=== PATIENT | female | born 1970 | race Hispanic/Latino ===

== ENCOUNTER → 2018-06-25 | Outpatient (CLI) | payer OTHER | END | disposition home or self-care (01) | LOC: RAH 08:52 | PROVIDERS: ATTEND Family Medicine | DX: Z12.31 Encounter for screening mammogram for malignant neoplasm of breast (principal) | CPT/HCPCS: 77067 ==

== ENCOUNTER → 2020-11-28 | Outpatient (CLI) | payer OTHER | END | disposition home or self-care (01) | LOC: RAH 14:33 | PROVIDERS: ATTEND Obstetrics & Gynecology | DX: Z12.31 Encounter for screening mammogram for malignant neoplasm of breast (principal); N64.89 Other specified disorders of breast | CPT/HCPCS: 77067 ==

== ENCOUNTER → 2025-01-19 | Outpatient (CLI) | payer OTHER | END | disposition home or self-care (01) | LOC: RAH 11:19 | PROVIDERS: ATTEND Family Medicine | DX: Z12.31 Encounter for screening mammogram for malignant neoplasm of breast (principal) | CPT/HCPCS: 77067 ==

== ENCOUNTER → 2025-03-02 | Outpatient (CLI) | payer OTHER ==
--- NOTE | 2025-03-03 10:49 | HMCIMG ---
EXAMINATION: ULTRASOUND OF THE ABDOMEN WITH COLOR DOPPLER. CLINICAL HISTORY: Unspecified abdominal pain. COMPARISON: None provided. TECHNIQUE: Real-time grayscale ultrasound images of the abdomen. In addition, color Doppler is medically necessary to perform in order to evaluate vascularity and blood flow. FINDINGS: Liver: Normal in caliber; the right hepatic lobe measures 16.1 cm in the craniocaudal dimension. There is increased echogenicity of the hepatic parenchyma. There is no focal hepatic abnormality or intrahepatic biliary ductal dilatation. There is normal spectral Doppler of the main portal vein. Gallbladder: Within normal limits with normal wall thickness (0.3 cm). No hyperemia or pericholecystic free fluid. There is no cholelithiasis. Common bile duct is normal in caliber, measuring 0.4 cm. Spleen is normal in caliber and measures 10.7 x 2.6 x 2.7 cm in craniocaudal, AP, and transverse dimensions respectively. No focal lesions. Pancreas: Head and body are normal in caliber and echotexture. No calcification or dilated pancreatic duct. Tail is obscured by bowel gas. The kidneys are normal in caliber; the right kidney measures 10.6 x 4.7 x 5.4 cm in its craniocaudal, AP, and transverse dimensions, and the left kidney measures 11.7 x 4.9 x 5.2 cm in its craniocaudal, AP, and transverse dimensions. There is normal renal cortical thickness, and cortical echogenicity. There is no renal calculus. There is no hydronephrosis. Visualized aspects of the inferior vena cava and aorta are unremarkable. IMPRESSION: Hepatomegaly with hepatic steatosis. /Mission
== END | disposition home or self-care (01) ==
LOC: RAH 08:02
PROVIDERS: ATTEND Physician Assistant Medical
DX: K76.0 Fatty (change of) liver, not elsewhere classified (principal); R10.9 Unspecified abdominal pain
CPT/HCPCS: 76700